=== PATIENT | female | born 1975 | race Caucasian/White ===

== ENCOUNTER 2021-06-16 14:30 | Emergency (ER) | payer SELFPAY ==
--- NOTE | 2021-06-16 15:13 | NUR ---
ATTEMPTED TO CALL PATIENT AND NO ANSWER
--- NOTE | 2021-06-16 15:29 | NUR ---
ATTEMPTED TO CALL PATIENT AND NO ANSWER
== END 2021-06-16 15:13 | disposition left against medical advice (07) ==
LOC: MED 14:30
DX: M79.673 Pain in unspecified foot (principal); Z53.21 Procedure and treatment not carried out due to patient leaving prior to being seen by health care provider

== ENCOUNTER 2021-10-23 11:10 | Emergency (ER) | payer SELFPAY ==
[~2021-10-23] VITALS: Ht 157.5 cm; Wt 73.7 kg
[2021-10-23 11:15] VITALS: BP 167/89
--- NOTE | 2021-10-23 11:35 | NUR ---
46Y FEMALE BIB SELF DUE TO MID ABDOMINAL PAIN THAT RADIATES TO LUQ & N/V X8 DAYS. ABD SOFT, NO TENDERNESS. SKIN IS PINK/WARM/DRY; AAOX4 WITH EVEN AND STEADY GAIT; LUNGS CLEAR BL; HR EVEN AND REGULAR; PT DENIES ANY FEVER, CP, SOB, OR COUGH AT THIS TIME; PATIENT STATES PAIN OF 8/10 AT THIS TIME. PATIENT POSITIONED FOR COMFORT; HOB ELEVATED; BEDRAILS UP X1; BED DOWN. ER MD MADE AWARE OF PT STATUS.
[2021-10-23] MEDS ORDERED: KETOROLAC 60 MG/2 ML VIAL IM ONE (11:55)
[2021-10-23] MEDS ORDERED: ONDANSETRON 4 MG ODT PO ONE (11:55)
[2021-10-23] MEDS ORDERED: IBUP-2213 PO (12:35)
[2021-10-23] MEDS ORDERED: ONDA8TAB87 PO (12:35)
[2021-10-23] MEDS ORDERED: OMEP40EC24 PO (12:35)
[2021-10-23] MEDS ORDERED: CIPR500T4 PO (12:35)
[2021-10-23 12:45] VITALS: BP 139/91
--- NOTE | 2021-10-23 12:45 | NUR ---
Patient discharged with v/s stable. Written and verbal after care instructions given and explained. Patient alert, oriented and verbalized understanding of instructions. Ambulatory with steady gait. All questions addressed prior to discharge. ID band removed. Patient advised to follow up with PMD. Rx of CIPRO, ZOFRAN, ORILOSEC & INUPROFEN given. Patient educated on indication of medication including possible reaction and side effects. Opportunity to ask questions provided and answered.
== END 2021-10-23 12:45 | disposition home or self-care (01) ==
LOC: MED 11:10
DX: N39.0 Urinary tract infection, site not specified (principal); R11.2 Nausea with vomiting, unspecified; Z98.890 Other specified postprocedural states
CPT/HCPCS: 81002; 81025; 96372; 99283; J1885; Q0162

== ENCOUNTER 2022-06-17 21:07 | Emergency (ER) | payer MEDICAID ==
[~2022-06-17] VITALS: Ht 152.4 cm; Wt 68.0 kg
[~2022-06-17 21:07] MED LIST: CIPR500T4 PO; IBUP-2213 PO; OMEP40EC24 PO; ONDA8TAB87 PO
[2022-06-17 21:15] VITALS: BP 166/80
--- NOTE | 2022-06-17 21:18 | NUR ---
to bed ambulatory
--- NOTE | 2022-06-17 21:22 | NUR ---
pt is complaining about the right knee pain. no redness noted. unble to lay flat. slight swelling, otherwise patient is alert and oriented x4. room air and ambulatory
[2022-06-17] MEDS ORDERED: KETOROLAC 60 MG/2 ML VIAL IM ONE (21:25)
--- NOTE | 2022-06-17 21:38 | NUR ---
XRAY AT BEDSIDE
--- NOTE | 2022-06-17 22:15 | NUR ---
Dr. Gutiérrez examining patient.
[2022-06-17] MEDS ORDERED: LID5T TP (22:20)
[2022-06-17] MEDS ORDERED: IBUP-2213 PO (22:20)
[2022-06-17] MEDS ORDERED: METH-1681 PO (22:20)
[2022-06-17 23:58] VITALS: BP 166/80
--- NOTE | 2022-06-18 | NUR ---
Patient discharged with v/s stable. Written and verbal after care instructions given and explained. Patient verbalized understanding. Ambulatory with steady gait. All questions addressed prior to discharge. Advised to follow up with PMD. pt left with her belongings. Pt harleen pyle to work on 06/20/2022
== END 2022-06-17 22:35 | disposition home or self-care (01) ==
LOC: MED 21:07
DX: S83.91XA Sprain of unspecified site of right knee, initial encounter (principal); Z79.899 Other long term (current) drug therapy; Z79.1 Long term (current) use of non-steroidal anti-inflammatories (NSAID); Z79.2 Long term (current) use of antibiotics; W18.39XA Other fall on same level, initial encounter; Y92.89 Other specified places as the place of occurrence of the external cause; Y93.89 Activity, other specified; Y99.8 Other external cause status
CPT/HCPCS: 73562; 96372; 99283; J1885; Q0092

== ENCOUNTER 2023-01-27 13:30 | Emergency (ER) | payer MEDICAID ==
[~2023-01-27] VITALS: Ht 157.5 cm; Wt 70.8 kg
[~2023-01-27 13:30] MED LIST changes: +LID5T TP; +METH-1681 PO
[2023-01-27 13:51] VITALS: BP 150/73; PULSE 75; RESP 17; TEMP 97.4; O2SAT 98
[2023-01-27 15:12] LABS: BASOPHILS % (AUTO) 0.9 % (0.0-2.0); EOSINOPHILS # (AUTO) 0.1 K/uL (0-0.4); EOSINOPHILS % (AUTO) 1.6 % (0.0-4.0); HEMATOCRIT 41.8 % (36-48); HEMOGLOBIN 14.2 g/dL (12.0-16.0); LYMPHOCYTES # (AUTO) 1.6 K/uL (2.5-16.5); LYMPHOCYTES % (AUTO) 31.5 % (20.5-51.1); MEAN CORPUSCULAR HEMOGLOBIN 32 pg (27-31); MEAN CORPUSCULAR HGB CONC 34 g/dL (33-37); MEAN CORPUSCULAR VOLUME 94.4 fL (80-94); MONOCYTES # (AUTO) 0.3 K/uL (0.8-1.0); MONOCYTES % (AUTO) 6.2 % (1.7-9.3); NEUTROPHILS % (AUTO) 59.8 % (42.2-75.2); PLATELET COUNT (AUTO) 244 K/uL (140-450); RED BLOOD CELL COUNT(AUTO) 4.43 MIL/uL (4.20-5.40); RED CELL DISTRIBUTION WIDTH 12.9 % (11.6-13.7)
[2023-01-27] MEDS ORDERED: KETOROLAC 30 MG/ML VIAL IM ONE (15:25)
[2023-01-27] MEDS ORDERED: ONDANSETRON 4 MG ODT PO ONE (15:25)
[2023-01-27 15:41] LABS: ALBUMIN 3.9 g/dL (3.4-5.0); ANION GAP 11.6 (8-16); CALCIUM 8.8 mg/dL (8.5-10.1); CARBON DIOXIDE 26.3 mmol/L (21-32); CREATININE 0.8 mg/dL (0.6-1.3); POTASSIUM 3.9 mmol/L (3.5-5.1); TOTAL BILIRUBIN 0.6 mg/dL (0.0-1.0); TOTAL PROTEIN, SERUM 7.9 g/dL (6.4-8.2)
[2023-01-27 16:17] LABS: APPEARANCE,URINE CLEAR (CLEAR); BILIRUBIN,URINE NEGATIVE (NEGATIVE); BLOOD, URINE 1+ (NEGATIVE); COLOR,URINE YELLOW (YELLOW); LEUKOCYTE ESTERASE ,URINE NEGATIVE (NEGATIVE); NITRITE, URINE POSITIVE (NEGATIVE); PROTEIN,URINE NEGATIVE (NEGATIVE); UGLUCOSE NEGATIVE (NEGATIVE); UROBILINOGEN,URINE 0.2 EU/dL (0.2 - 1)
[2023-01-27 16:43] LABS: BACTERIA,URINE >30 (MANY) /HPF (None Seen); RBC,URINE 0-5 /HPF (0-5); SQUAMOUS EPITHELIAL CELL,UR 4-10 (MOD) /LPF (0-3 (FEW))
[2023-01-27] MEDS ORDERED: ONDA-188 PO (17:48)
[2023-01-27] MEDS ORDERED: ACET-8905 PO (17:48)
[2023-01-27] MEDS ORDERED: NAPR-54 PO (17:48)
[2023-01-27] MEDS ORDERED: FAMO-90 PO (17:48)
[2023-01-27] MEDS ORDERED: NITR100C7 PO (17:49)
[2023-01-27] MEDS ORDERED: KETOROLAC 30 MG/ML VIAL ONE (18:18)
[2023-01-27] MEDS ORDERED: ONDANSETRON 4 MG TAB ONE (18:18)
[2023-01-27 18:31] VITALS: BP 122/79; PULSE 74; RESP 17; O2SAT 98
== END 2023-01-27 18:31 | disposition home or self-care (01) ==
LOC: MED 13:30
DX: K80.50 Calculus of bile duct without cholangitis or cholecystitis without obstruction (principal); N39.0 Urinary tract infection, site not specified; Z79.899 Other long term (current) drug therapy
CPT/HCPCS: 36415; 76705; 80053; 81001; 81025; 83690; 85025; 96372; 99285; J1885; Q0162